=== PATIENT | female | born 1980 | race Caucasian/White ===

== ENCOUNTER 2024-04-02 21:37 | Emergency (ER) | payer SELFPAY ==
[~2024-04-02] VITALS: Ht 157.5 cm; Wt 48.0 kg
[2024-04-02 21:40] VITALS: O2SAT 100
[2024-04-02] MEDS: KETOROLAC 15MG/ML VIAL IV ONE (23:26)
[2024-04-02] MEDS: DIPHENHYDRAMINE 50MG/ML VIAL IV ONE (23:26)
[2024-04-02] MEDS: SODIUM CHLORIDE 0.9% 1000ML BAG (SEPSIS BOLUS) IV ONE (23:26)
[2024-04-02] MEDS: METOCLOPRAMIDE HCL 10MG/2ML VIAL IV ONE (23:26)
[2024-04-03 01:34] LABS: BASOPHILS % 0.4 % (0.0-2.0); EOSINOPHILS % 0.2 % (0.0-5.0); HEMATOCRIT. 36.2 % (36.0-48.0); HEMOGLOBIN. 11.8 g/dL (12.0-16.0); LYMPHOCYTES % 8.8 % (20.0-50.0); MEAN CORPUSCULAR HEMOGLOBIN 28.5 pg (28.0-32.0); MEAN CORPUSCULAR HGB CONC 32.7 g/dL (31.0-37.0); MEAN PLATELET VOLUME 7.3 fl (7.4-10.4); MONOCYTES % 4.5 % (2.0-8.0); NEUTROPHILS % 86.1 % (40.0-76.0); PLATELET 426 x1000/uL (130-400); RED BLOOD CELL COUNT 4.16 mill/uL (4.2-5.4); RED CELL DISTRIBUTION WIDTH 15.7 % (11.6-14.6); WHITE BLOOD COUNT 12.2 x1000/uL (4.5-11.0)
[2024-04-03 01:36] LABS: CLARITY URINE CLEAR (CLEAR); COLOR URINE YELLOW (YELLOW); GLUCOSE URINE 3+ (NEGATIVE); KETONES URINE 2+ (NEGATIVE); LEUKOCYTE ESTERASE URINE NEGATIVE (NEGATIVE); NITRITE URINE NEGATIVE (NEGATIVE); OCCULT BLOOD URINE NEGATIVE (NEGATIVE); PH URINE 7.5 (4.5-8.0); PROTEIN URINE 1+ (NEGATIVE); SPECIFIC GRAVITY URINE 1.023 (1.005-1.030); UROBILINOGEN URINE 0.2 E.U./dL (0.2-1.0)
[2024-04-03 01:46] LABS: PARTIAL THROMBOPLASTIN TIME 30.8 sec (23.4-31.0)
[2024-04-03 01:46] LABS: BACTERIA URINE TRACE; RBC URINE 0-2 /hpf (0-2); SQUAMOUS EPITHELIAL CELL URINE 2+ /lpf (RARE/1+); WBC URINE 0-2 /hpf (0-2)
[2024-04-03 01:48] LABS: CARBON DIOXIDE 26 mEq/L (21-32); CHLORIDE 104 mEq/L (98-107); POTASSIUM 3.3 mEq/L (3.5-5.1); SODIUM 137 mEq/L (136-145)
[2024-04-03 01:49] LABS: CALCIUM 8.5 mg/dL (8.7-10.4)
[2024-04-03 01:52] LABS: HCG SCREEN NEGATIVE
[2024-04-03 01:53] LABS: CREATININE 0.7 mg/dL (0.6-1.0)
[2024-04-03 01:54] LABS: GLUCOSE 337 mg/dL (70-105); UREA NITROGEN BLOOD 8 mg/dL (9-23)
[2024-04-03 01:55] LABS: ALANINE AMINOTRANSFERASE 7 IU/L (10-49); ALBUMIN 4.3 g/dL (3.2-4.8); ASPARTATE AMINOTRANSFERASE 12 IU/L (<34)
[2024-04-03 01:56] LABS: BILIRUBIN DIRECT 0.1 mg/dL (<=3.0); BILIRUBIN TOTAL 0.4 mg/dL (0.1-1.0); PROTEIN TOTAL 7.2 g/dL (6.0-8.3)
[2024-04-03 02:10] LABS: TROPONIN I HIGH SENSITIVITY < 4 ng/L (3.0-34)
[2024-04-03] MEDS: POTASSIUM CHLORIDE 20MEQ/PACKET PO ONE (02:31)
[2024-04-03 02:33] VITALS: BP 135/80; PULSE 74; RESP 18; TEMP 98
== END 2024-04-03 03:04 | disposition home or self-care (01) ==
LOC: ER 21:37
DX: R51.9 Headache, unspecified (principal); R11.2 Nausea with vomiting, unspecified; E11.65 Type 2 diabetes mellitus with hyperglycemia; Z85.9 Personal history of malignant neoplasm, unspecified
CPT/HCPCS: 99285; 96374; 70450; 96361; 96375; 71045; 81003; 87086; 36415; 93005; 80076; 80048; 81025; 84703; 83605; 83930; 85025; 85610; 85730; 84484; 84145; J1200; J1885; J2765; J7030